=== PATIENT | female | born 1960 | race Caucasian/White ===

== ENCOUNTER 2024-07-01 14:24 | Emergency (ER) | payer OTHER, SELFPAY ==
[2024-07-01] VITALS (12 sets, daily range): BP systolic 127–253; BP diastolic 74–151; BMI 32.1
[2024-07-01 14:28] LABS: Glucose - Point of Care 170 mg/dl (70-99)
--- NOTE | 2024-07-01 14:28 | EDRN ---
Dr. Higuera and neurologist currently at the [facility] bedside
[2024-07-01] MEDS: TRANDATE 20 MG IV (14:33)
--- NOTE | 2024-07-01 14:36 | ED.CVA ---
History of Present Illness
General
Chief Complaint: CVA/TIA Symptoms
Time Seen by Provider: 07/01/24 14:25
Onset of Stroke Symptoms
Onset of symptoms known: Yes
Date of onset of symptoms: 07/01/24
History of Present Illness
History of Present Illness:
63-year-old female without known significant past medical history, however notes that she does not routinely go to the doctor, presenting to the emergency department for high blood pressure, headache, strokelike symptoms. Patient arrives by medics.
Patient notes that she woke up this morning with a right-sided headache and has been vomiting. noted around 140 she was on the ground and he rolled her to the side and noticed a left-sided facial droop. Patient denies any history of
stroke. Patient markedly hypertensive en route and on arrival. Denies any known history of high blood pressure. Denies weakness or numbness to extremities. Denies any recent fall or trauma. Denies any recent fever or illness. Denies additional
acute medical complaints
Phy Exam
Physical Exam
Physical Exam:
General: no clinical signs of dehydration, nontoxic and in no acute distress
HEENT: protecting airway, pupils equal and reactive, nystagmus. Left facial drooping
Neck: appears supple
CV: Normal heart rate, regular rhythm
Resp: No accessory muscle use, no increased work of breathing, lungs clear to auscultation bilaterally
Abd: Soft and non-distended, no tenderness to palpation
Extremities: No deformities, no swelling, no erythema, pulses and sensation intact
Neuro: alert, left facial drooping with mild dysarthria and left sided ataxia
: deferred
Rectal: deferred
Psych: Normal affect
Skin: Intact
Scores
NIH Stroke Score
Level of Consciousness: 0 - Alert
LOC Questions: 0-Answers both correctly
LOC Commands: 0-Performs both correctly
Best Horizontal Gaze: 0-Normal
Visual Galarza: 1=Partial hemianopia
Facial Palsy: 1=Minor paralysis
Motor - Right Arm: 0=No drift 10 seconds
Motor - Left Arm: 0=No drift 10 seconds
Motor - Right Le-No drift 5 seconds
Motor - Left Le-No drift 5 seconds
Limb Ataxia: 1-Present in one limb
Sensation: 0-Normal
Best Language: 0-No aphasia
Dysarthria: 1-Mild slurring
Extinction and Inattention: 1-Sensory inattention
Total Score:: 5
Course
Orders/Labs/Results
Orders:
Orders
07/01/24 14:25
CT HEAD STROKE ALERT W/o Cont Urgent
Comment:
Reason For Exam: headache, L-facial droop, HTN
CT HEAD/NECK ANG STROKE ALERT Urgent
Comment:
Reason For Exam: headache, L-facial droop, HTN
07/01/24 14:26
Electrocardiogram (*1) Stat
Reason for Study: Other
Other Reason for Exam: neuro symptoms
EKG- Treatment ONCE
07/01/24 14:32
Labetalol HCl [Trandate] 20 mg .ROUTE .STK-MED ONE
07/01/24 14:33
Labetalol HCl [Trandate] 20 mg IV NOW STA
07/01/24 14:36
Nicardipine 40 mg/200 ml [Cardene] 40 mg in 200 ml .ROUTE .STK-MED
07/01/24 14:38
Basic Metabolic Panel Urgent
Complete Blood Count/With Diff Urgent
PTT Urgent
Prothrombin Time Urgent
Troponin I Urgent
07/01/24 14:44
Ondansetron Injectable [Zofran] 4 mg IV NOW STA
07/01/24 14:45
Nicardipine 40 mg/200 ml [Cardene] 40 mg in 200 ml IV PER PROTOCOL
Initial dose in mg/hr, then titrate:: 5
Titrate to keep:: Other
Titrate to keep other:: MAP 120-130
Titrate by mg/hr:: 2.5 mg/hr
Frequency of titrations (minutes):: 5-15 minutes
Maximum dose in mg/hr:: 15
Begin to taper infusion when:: Remained at goal for 2hrs
Taper by mg/hr:: 2.5 mg/hr
Frequency of taper (minutes) if patient maintains goal:: every 15-30 minutes
Taper to off?: Yes
If infusion off & no longer maintaining goal:: Contact Provider
07/01/24 15:26
Triglycerides Routine
Comment: baseline levels with propofol infusion
07/01/24 15:30
Propofol 1,000,000 Mcg/100 ml [Diprivan] 1,000,000 mcg in 100 ml IV PER PROTOCOL
Indication:: Deep Sedation
Begin Infusion:: Now
Goal:: RASS -3 to -5 or BIS < 60 or ventilator synchrony
Maximum dose in mcg/kg/min:: 50
Continue currently infusion dose and titrate:: Yes
Titration Instructions:: Titrate by 5-10 mcg/kg/min every 5 minutes until RASS -3 to -5 or
Titration Instructions:: BIS < 60 or ventilator synchrony is met.
Titration Instructions:: Administer analgesia bolus dose(s) & titrate analgesia prior to
Titration Instructions:: adjusting sedation.
Taper Instructions:: If RASS is at or below goal for 4 consecutive hours decrease infusion by
Taper Instructions:: 5-10 mcg/kg/min every 2 hours. Do not wean infusion to off if patient is
Taper Instructions:: receiving a continuous NMBA or has received bolus NMBA with the past 3 hrs
Over-sedation Instructions:: If BIS < 40 and synchronous with ventilator decrease infusion by
Over-sedation Instructions:: 5-10 mcg/kg/min every 2 hour until BIS = 40-60.
Notify provider:: immediately if patient exhibits signs/symptoms of propofol-related
Notify provider:: infusion syndrome.
Additional Instructions:: Patient MUST be mechanically ventilated and MUST receive analgesia.
07/01/24 15:35
Ondansetron Injectable [Zofran] 4 mg .ROUTE .STK-MED ONE
07/01/24 15:36
Ondansetron Injectable [Zofran] 4 mg IV NOW STA
07/02/24 08:00
Polyethylene Glycol Powder [Miralax] 17 grams TUBE DAILY
Abnormal Lab Results
07/01/24 07/01/24 07/01/24
14: 14:38 15:26
WBC 14.1 H 10^3/uL
(4.8-10.8)
RBC 5.57 H 10^6/uL
(4.20-5.40)
Hgb 16.8 H g/dL
(12.0-16.0)
MPV 10.8 H fL
(7.4-10.4)
Abs Immat Gran (auto) 0.2 H 10^3/uL
(0-0.05)
Absolute Neuts (auto) 11.2 H 10^3/uL
(1.4-6.5)
Immature Gran % 1.1 H %
(0-0.5)
Neutrophils % 79.3 H %
(42.2-75.2)
Lymphocytes % 14.2 L %
(20.5-51.1)
Glucose 169 H mg/dl
(70-99)
Triglycerides 233 H mg/dl
(10-149)
POC Glucose 170 H mg/dl
(70-99)
07/01/24 14:38
07/01/24 14:38
Vital Signs
Initial and Last Documented VS:
Initial Vital Signs
Temp Pulse Resp BP Pulse Ox
97.5 F 103 22 253/135 99
07/01/24 14:28 07/01/24 14:28 07/01/24 14:28 07/01/24 14:28 07/01/24 14:28
Last Documented Vital Signs
Temp Pulse Resp BP Pulse Ox
97.5 F 92 27 152/79 100
07/01/24 14:28 07/01/24 15:17 07/01/24 15:17 07/01/24 15:17 07/01/24 15:17
MDM/Problems Addressed
MDM/Problems Addressed:
63-year-old female without known past medical history presenting to the emergency department for prehospital stroke alert. Vital signs on arrival significant for marked hypertension.
On arrival, patient with obvious left-sided facial droop, with blood pressure of systolic greater than 250. Stroke alert called prehospital with neurology at bedside shortly upon patient's arrival. NIH stroke scale of 5. In the setting of
hypertension, vomiting, neurologic symptoms, concern for intracranial hemorrhage. Patient reports that she last felt normal last night, woke up this morning with a headache. At this time do not feel candidate for TNK. IV access obtained, 20 mg of
labetalol given for blood pressure control. Patient sent to CT scan with plan for nicardipine drip
14:45 -CT shows intracranial hemorrhage, likely controlled blood pressure. Will discuss with [facility] neurosurgery. Labetalol given for blood pressure control with improvement. Starting patient on nicardipine drip.
14:50 - In discussion with Dr. Crespo, recommending SBP <140, CT angio
15:20 -blood pressure improved. Patient's mental status remains intact. Flight crew at bedside. Neurosurgery updated.
*Critical Care Note
Total Time (30-74mins, 75-104mins- exclusive of procedures): 61
comment:
The high probability of a clinically significant, sudden or life threatening deterioration of the neurologic system(s) required my full and direct attention, intervention and personal management. The aggregate critical care time was 61 minutes. This
time is in addition to time spent performing reported procedures but includes the following:
[x] Data Review and interpretation
[x] Patient assessment and monitoring of vital signs
[x] Documentation
[x] Medication orders and management
ED Attending Note
-
Portions of this chart may have been created with voice recognition software.� Occasional wrong word or��sound alike� substitutions may have occurred due to the inherent limitations of voice recognition software.
Discharge Plan
Departure
Patient Disposition: Acute Care Hospital
Date of Disposition: 07/01/24
Time of Disposition: 15:28
Condition: Critical
Discharge Problem:
Intracranial hemorrhage, Hypertensive emergency
Prescriptions:
No Action
No Current Medications
0
Referrals:
Kael Lees PA [Family Provider] -
Hospital Transfer
Other hospital: [facility]
I certify that the patient requires transfer: Yes
Discussed case with accepting physician: Dr. Bueno
Reason for transfer: specialties available
Interventions
Interventions:
*Risk Screen - Suicide Last Done: 07/01/24 14:28
*General Assessment Last Done: 07/01/24 14:28
*Neglect/Abuse Screening Last Done: 07/01/24 14:28
*ED- Fall Risk Assessment Last Done: 07/01/24 14:28
*ED COVID-19 Vaccine History Last Done: 07/01/24 14:28
*Nursing Disposition Last Done: 07/01/24 15:48
ED- Pulmonary Assessment Last Done: 07/01/24 14:28
ED- Neurological Assessment Last Done: 07/01/24 14:28
ED- Cardiac Assessment Last Done: 07/01/24 14:28
ED Swallowing Screen Last Done: 07/01/24 14:28
Discharge Date and Time
Discharge Date/Time: 07/01/24 15:50
Print Language: MAURITIAN
[2024-07-01] MEDS: CARDENE 200 IV (14:44)
[2024-07-01 14:46] LABS: % Basophils 0.7 % (0-2); % Eosinophils 0.4 % (0-6); % Immature Granulocytes 1.1 % (0-0.5); % Lymphocytes 14.2 % (20.5-51.1); % Monocytes 4.3 % (1.7-9.3); % Neutrophils 79.3 % (42.2-75.2); Absolute Basophils 0.1 10^3/uL (0-0.2); Absolute Eosinophils 0.1 10^3/uL (0-0.7); Absolute Immature Granulocytes 0.2 10^3/uL (0-0.05); Absolute Monocytes 0.6 10^3/uL (0.1-0.6); Absolute Neutrophils 11.2 10^3/uL (1.4-6.5); Hematocrit 46.4 % (37.0-47.0); Hemoglobin 16.8 g/dL (12.0-16.0); Mean Corp Hgb Conc. 36.2 g/dL (33.0-37.0); Mean Corpuscular Hgb 30.2 pg (27.0-31.0); Mean Corpuscular Volume 83.3 fL (81.0-99.0); Mean Platelet Volume 10.8 fL (7.4-10.4); Nucleated Red Blood Cells % 0 %; Platelet Count 174 10^3/uL (130-400); Red Blood Cell Count 5.57 10^6/uL (4.20-5.40); Red Cell Dist. Width 12.4 % (11.5-14.5); White Blood Cell Count 14.1 10^3/uL (4.8-10.8)
[2024-07-01] MEDS: ZOFRAN 4 MG IV ×2 (14:53→15:36)
[2024-07-01 14:56] LABS: APTT 25.7 Sec (23.4-35.0); INR 0.92; PT 12.7 Sec (11.4-14.6)
[2024-07-01 15:15] LABS: Troponin I < 0.012 ng/ml
--- NOTE | 2024-07-01 15:19 | EDRN ---
the pts Sp02 dipped to 88%, this RN notified Dr. Higuera and this RN placed the pt on 4L NC, Sp02 came up to 100%, however the pt is becoming more lethargic
[2024-07-01 15:20] LABS: Blood Urea Nitrogen 17 mg/dl (7-17); Calcium 9.9 mg/dl (8.4-10.2); Carbon Dioxide 24 mmol/L (22-30); Chloride 103 mmol/L (98-107); Estimated Creatinine Clearance 65 ml/min; Glucose 169 mg/dl (70-99); Sodium 143 mmol/L (135-145); eGFR > 60.00
--- NOTE | 2024-07-01 15:33 | EDRN ---
verbal report given to [facility] nurse Ana Maria Alcaraz RN
[2024-07-01 15:47] LABS: Triglycerides 233 mg/dl (10-149)
--- NOTE | 2024-07-01 15:47 | EDRN ---
this RN called verbal report to the receiving ICU SilerCari Qureshi RN at [phone]
--- NOTE | 2024-07-01 15:51 | CON.NEURO ---
Consultation
Order
Date of Consultation: 07/01/24
Requesting Provider: Alejandra Higuera DO
Reason for Consult: Stroke alert
Prehospital notification: 14: 19
Neurology Consultation Note.
HPI: This is a 63-year-old right-handed woman who presented to [facility] on July 01, 2024 with headache and facial weakness.
According to patient's he noted the patient to have left facial droop around 1:40 PM today. Ms. Rogers endorses an acute bifrontal headache since morning.
No reports of nausea, emesis, vertigo or motor weakness.
The exact timeline of events is somewhat unclear. However, it appears that she was completely normal when she woke up in the morning, had breakfast with her around 9:30 AM, and then developed symptoms later in the day.
VS by EMS: 260/170 fingerstick�130, 96 on room air.
EKG: NSR, QTc Int : 440 ms
PDMP:none
Labs: Glucose�169, WBCs�14.1, hemoglobin�16.8, platelets�174, normal PT/PTT, INR, sodium, creatinine.
CT head wo contrast-LARGE 3.9 x 3.3 x 3.3 cm ACUTE INTRAPARENCHYMAL HEMORRHAGE in the LEFT CEREBELLAR HEMISPHERE causing severe mass effect, mild to moderate obstructive hydrocephalus, and mild inferior cerebellar tonsillar herniation.
2. Severe white matter leukoaraiosis in both cerebral hemispheres.
3. 2.6 cm band of encephalomalacia in the right basal ganglia and periventricular right frontal lobe (either a chronic infarct or resolved intraparenchymal hemorrhage).
4. 1.0 cm chronic periventricular white matter infarct in the left frontal lobe.
CTA head/neck-severe stenosis (greater than 70% diameter) in the proximal left vertebral artery, > 70% diameter stenoses in both intracranial vertebral arteries.
50-70% diameter stenosis in the basilar artery, 50-70% stenosis of the L intracranial ICA.
PMH: No prior medical care
SH: , non-smoker, works as an senior administrative support
FH: Not contributory to current presentation
All: Sulfas
ROS: Positive for dysarthria, facial weakness and headache
General: Well developed. In no acute distress.
Cardio: Regular rate and rhythm without murmur. Extremities are without cyanosis or edema.
Neuro:
Mental Status: Awake, oriented to self, person. Follows simple requests consistently. Left hemineglect.
Cranial Nerves: Pupils are equally round and reactive to light. EOMs full. Visual byrnes full to confrontation. No ptosis. Sustained by horizontal nystagmus. Moderate left LMN CN VII. The palate elevated well. Mild to moderate dysarthria
Motor: No pronator or leg drift
Sensory: No extinction to DSS
Coordination: Left>right dysmetria
Gait: deferred
Assessment and Plan:
I. Acute left cerebellar intraparenchymal ICH with obstructive hydrocephalus, and mild inferior cerebellar tonsillar herniation. ICH score-1. Mortality rate 13%. Likely etiology�hypertensive micro angiopathy versus bleeding to an infarct. Severe L
vert stenosis.
II. Hypertensive emergency
III. Severe intra and extracranial atherosclerosis
IV. Chronic right basal ganglia infarct
�
- NPO
- Stat transfer to [facility] for neurosurgical care
- AHA guidelines recommend lowering systolic SBP to <160 mmHg
- Treat persistently elevated MAP>110 with Labetalol IV
- Maintain elevation of HOB 30-45 degrees
- Continuous monitoring using pulse oximetry if O2�saturation is <96%
- Osmotic diuresis using Mannitol: load 1g per kg IV bolus and maintain on 0.5g per kg IV Q6h; check serum osmolality 1 hour prior to each dose.��Dose should be held if serum osm>310;
- SCD/MARQUES
I personally reviewed all radiology and labs along with past medical records pertinent to current medical problems. Total time spent in patient care is 60 minutes.
Thank you for allowing us to participate in the care of this patient. We will continue to follow. Please do not hesitate to contact us with any questions or concerns.
Subjective/Objective
Subjective Data
Date of Service: July 01, 2024
Objective Data
Vital Signs
Temp Pulse Resp BP Pulse Ox
36.4 C 92 27 152/79 100
07/01/24 14:28 07/01/24 15:17 07/01/24 15:17 07/01/24 15:17 07/01/24 15:17
Lab Results
07/01/24 14:38
07/01/24 14:38
PT 12.7 Sec (11.4-14.6) 07/01/24 14:38
INR 0.92 07/01/24 14:38
APTT 25.7 Sec (23.4-35.0) 07/01/24 14:38
Sodium 143 mmol/L (135-145) 07/01/24 14:38
Potassium mmol/L (3.5-5.1) 07/01/24 14:38
BUN 17 mg/dl (7-17) 07/01/24 14:38
Glucose 169 mg/dl (70-99) H 07/01/24 14:38
Calcium 9.9 mg/dl (8.4-10.2) 07/01/24 14:38
Patient Allergies
Sulfa (Sulfonamide Antibiotics) Allergy (Mild, Verified 07/01/24 14:33)
Rash
Medications
-
Home Medications
�Medication �Instructions �Recorded
No Meds [No Current Medications] 07/01/24
Vital Signs and Labs
-
Vital Signs and Labs:
Vital Signs
Temp Pulse Resp BP Pulse Ox
36.4 C 92 27 152/79 100
07/01/24 14:28 07/01/24 15:17 07/01/24 15:17 07/01/24 15:17 07/01/24 15:17
Lab Results
07/01/24 14:38
07/01/24 14:38
PT 12.7 Sec (11.4-14.6) 07/01/24 14:38
INR 0.92 07/01/24 14:38
APTT 25.7 Sec (23.4-35.0) 07/01/24 14:38
Sodium 143 mmol/L (135-145) 07/01/24 14:38
Potassium mmol/L (3.5-5.1) 07/01/24 14:38
BUN 17 mg/dl (7-17) 07/01/24 14:38
Glucose 169 mg/dl (70-99) H 07/01/24 14:38
Calcium 9.9 mg/dl (8.4-10.2) 07/01/24 14:38
Home Medications
-
Home Medications
No Meds [No Current Medications] 07/01/24
== END 2024-07-01 15:50 | disposition short-term general hospital (02) ==
LOC: EMR 14:24
PROVIDERS: EMERGENCY PHYSICIAN Student in an Organized Health Care Education/Training Program; FAMILY PHYSICIAN Physician Assistant; OTHER PHYSICIAN Psychiatry & Neurology Neurology
DX: I62.9 Nontraumatic intracranial hemorrhage, unspecified (principal); I16.1 Hypertensive emergency
CPT/HCPCS: 99291; 96374; 96375 ×2; 96376; 70450; 70496; 70498; 80048; 82962; 84478; 84484; 85025; 85610; 85730; 93005; Q9967